=== PATIENT | female | born 1995 | race Two or more races ===

== ENCOUNTER 2021-02-20 10:37 | Inpatient (IN) | payer OTHER ==
[~2021-02-20] VITALS: Ht 172.7 cm; Wt 81.2 kg
[2021-02-21] MEDS ORDERED: PRENATAL + DHA1 EAC1 PO (08:02)
== END 2021-02-23 11:59 | disposition home or self-care (01) | DRG 807 ==
LOC: OBS/DEL 10:37 → LDR 17:06 → SURG-SUITE 02-21 17:11
PROVIDERS: ADMIT Specialist; ATTEND Specialist
PROC: 10E0XZZ Delivery of Products of Conception, External Approach (ICD-10-PCS; principal; 2021-02-20)
PROC: 0HQ9XZZ Repair Perineum Skin, External Approach (ICD-10-PCS; 2021-02-20)
PROC: 4A1HXFZ Monitoring of Products of Conception, Cardiac Rhythm, External Approach (ICD-10-PCS; 2021-02-20)
DX: O60.23X0 Term delivery with preterm labor, third trimester, not applicable or unspecified (principal); Z37.0 Single live birth; O70.0 First degree perineal laceration during delivery; O62.0 Primary inadequate contractions; Z3A.37 37 weeks gestation of pregnancy